=== PATIENT | male | born 1995 | race American Indian/Alaskan Native ===

== ENCOUNTER 2018-10-04 20:10 | Inpatient (IN) | payer MEDICAID ==
--- NOTE | 2018-10-04 20:16 | C.PDOC ---
History Of Present Illness 22 y/o male brought in by EMS after a seizure episode earlier today. Girlfriend states that she woke him up to get ready for work when the patient suddenly started to shake and had some difficulty breathing. As per girlfriend, he was foaming at the mouth and then collapsed to the ground which prompted her to call 911. Upon arrival, EMS states patient seemed to be confused and weak. He denies any fever, chills, nausea, or vomiting. Patient is AAOx3 but have no recollection of the event. Time Seen by Provider: 10/04/18 20:16 Chief Complaint (Nursing): Seizure History Per: Other (Girlfriend) History/Exam Limitations: no limitations Recent Seizure Activity Began: Hours Ago: Number Of Seizures: One Length Of Seizures (Duration): Unknown Quality Of Seizure: Generalized Precipitating Factor(s): Other (unknown) Post-ictal Period: Yes (Confused) Pain Scale Rating Of: 0 Recent travel outside of the [place]: No Additional History Per: EMS, Family Past Medical History Reviewed: Historical Data, Nursing Documentation, Vital Signs Family History: States: No Known Family Hx - Social History Hx Tobacco Use: (unknown) Hx Alcohol Use: Yes Hx Substance Use: (unknown) - Immunization History Hx Tetanus Toxoid Vaccination: (unknown) Hx Influenza Vaccination: (unknown) Hx Pneumococcal Vaccination: (unknown) Review Of Systems Constitutional: Negative for: Fever, Chills Eyes: Negative for: Redness ENT: Negative for: Throat Pain Cardiovascular: Negative for: Chest Pain Respiratory: Negative for: Shortness of Breath Gastrointestinal: Negative for: Nausea, Vomiting Musculoskeletal: Negative for: Back Pain Skin: Negative for: Rash Neurological: Positive for: Seizures Psych: Negative for: Anxiety Physical Exam - Physical Exam Appears: Non-toxic, No Acute Distress Skin: Warm, Dry Head: Normacephalic Eye(s): bilateral: Normal Inspection Oral Mucosa: Moist Neck: Trachea Midline, Supple Chest: Symmetrical Cardiovascular: Rhythm Regular Respiratory: No Rales, No Rhonchi, No Wheezing Gastrointestinal/Abdominal: Soft, No Tenderness, No Distention Back: Normal Inspection Extremity: Normal ROM Extremity: Bilateral: Atraumatic, Normal Color And Temperature, Normal ROM Pulses: Left Dorsalis Pedis: Normal, Right Dorsalis Pedis: Normal Neurological/Psych: Oriented x3, Normal Speech, Normal Cranial Nerves, Normal Motor, Normal Sensation Gait: Steady ED Course And Treatment - Laboratory Results Result Diagrams: 10/04/18 20:10 10/04/18 20:10 O2 Sat by Pulse Oximetry: 97 (RA) - CT Scan/US CT Head Other Rad Studies (CT/US): Read By Radiologist, Radiology Report Reviewed CT/US Interpretation: FINDINGS: BRAIN. No acute intraparenchymal hemorrhage. No mass lesion. No CT evidence for acute territorial infarct. No midline shift or extra-axial collections. VENTRICLES: No hydrocephalus. ORBITS: The orbits are unremarkable. SINUSES AND MASTOIDS: The paranasal sinuses and mastoid air cells are clear. BONES: No fracture. SOFT TISSUES: Unremarkable. IMPRESSION: No acute intracranial abnormality. Progress Note: Labs, CT head, chest x-ray, and urinalysis ordered. Disposition Discussed With DrNaila: Jesús Victor Comment: accepted the pt onhis service and took over the care at 10:57 PM Doctor Will See Patient In The: Hospital Counseled Patient/Family Regarding: Studies Performed, Diagnosis - Disposition Disposition: HOSPITALIZED Disposition Time: 20:16 Condition: FAIR Forms: enEvolv (Kosovan) - POA Present On Arrival: Poor Glycemic Control - Clinical Impression Clinical Impression: New onset seizure - Scribe Statement The provider has reviewed the documentation as recorded by the Irving Head Provider Attestation: All medical record entries made by the Irving were at my direction and personally dictated by me. I have reviewed the chart and agree that the record accurately reflects my personal performance of the history, physical exam, medical decision making, and the department course for this patient. I have also personally directed, reviewed, and agree with the discharge instructions and disposition. Decision To Admit - Pt Status Changed To: Hospital Disposition Of: Inpatient - Admit Certification Admit to Inpatient:: After my assessment, the patient will require hospitalization for at least two midnights. This is because of the severity of symptoms shown, intensity of services needed, and/or the medical risk in this patient being treated as an outpatient. - InPatient: Physician Admission Certification: I certify that this patient requires 2 or more midnights of care for the following reason:: After my assessment, the patient will require hospitalization for at least two midnights. This is because of the severity of symptoms shown, intensity of services needed, and/or the medical risk in this patient being treated as an outpatient. - . Bed Request Type: Regular Admitting Physician: Jesús Victor Patient Diagnosis: New onset seizure
[2018-10-04 20:39] LABS: BASO # 0.1 K/uL (0.0-0.2); BASO % 0.9 % (0.0-2.0); EOS # 0.2 K/uL (0.0-0.7); EOS % 2.3 % (0.0-4.0); HEMOGLOBIN 15.4 g/dL (12.0-18.0); LYMPH # 2.8 K/uL (1.0-4.3); LYMPH % 31.3 % (20.0-40.0); MEAN CORPUSCULAR HEMOGLOBIN 29.2 pg (27.0-31.0); MEAN CORPUSCULAR HGB CONC 33.9 g/dL (33.0-37.0); MEAN PLATELET VOLUME 9.8 fL (7.2-11.7); MONO # 0.5 K/uL (0.0-0.8); MONO % 5.6 % (0.0-10.0); NEUT # 5.4 K/uL (1.8-7.0); NEUT % 59.9 % (50.0-75.0); NRBC % 0.1 % (0.0-2.0); RBC 5.27 Mil/uL (4.40-5.90); RED CELL DISTRIBUTION WIDTH 13.1 % (11.5-14.5); WHITE BLOOD COUNT 8.9 K/uL (4.8-10.8)
[2018-10-04 20:51] LABS: ALB/GLOB RATIO 1.7 (1.0-2.1); ALBUMIN 4.6 g/dL (3.5-5.0); ALT/SGPT 39 U/L (21-72); AST/SGOT 27 U/L (17-59); BLOOD UREA NITROGEN 14 mg/dL (9-20); CALCIUM 8.9 mg/dl (8.6-10.4); GFR NON-AFRICAN AMERICAN > 60
[2018-10-04 20:58] LABS: VENOUS BLOOD GAS BASE EXCESS -3.9 mmol/L (0.0-2.0); VENOUS BLOOD GAS PCO2 43 mmHg (40-60); VENOUS BLOOD GAS PO2 39 mm/Hg (30-55); VENOUS BLOOD PH 7.32 (7.32-7.43)
[2018-10-04 21:28] LABS: URINE BILIRUBIN NEGATIVE (NEGATIVE); URINE BLOOD 2+ (NEGATIVE); URINE CLARITY Clear (Clear); URINE COLOR Yellow (YELLOW); URINE GLUCOSE (UA) NORMAL (Normal); URINE LEUKOCYTE ESTERASE NEG Leu/uL (Negative); URINE PROTEIN 1+ mg/dL (NEGATIVE); URINE UROBILINOGEN NORMAL mg/dL (0.2-1.0)
[2018-10-04 21:41] LABS: BARBITURATES, UR NEGATIVE (NEGATIVE); BENZODIAZEPINES, UR NEGATIVE (NEGATIVE); OPIATES, UR NEGATIVE (NEGATIVE); PHENCYCLIDINE, UR NEGATIVE (NEGATIVE)
--- NOTE | 2018-10-05 01:39 | PCM.RRT ---
Addendum entered and electronically signed by Cliff Villafana 10/05/18 01:51 EST: Neck was not rigid. Patient was afebrile. Case discussed with Dr. Shane Villafana, PGY1 Original Note: <Cliff Villafana - Last Filed: 10/05/18 01:54 EDT> FLUOROSCOPE OPERATOR Nurses Assessment - Situation Date: 10/05/18 Time FLUOROSCOPE OPERATOR was called: 01:08 FLUOROSCOPE OPERATOR Location:: Med/Oncology Room Number: 367A FLUOROSCOPE OPERATOR Called By: RN I.Reason for FLUOROSCOPE OPERATOR - A) Acute Change in Patient: (Select all that apply): Staff member or family is worried about patient, Acute change in mental status Subjective: Rapid was called at 0108 after girlfriend at bedside noted that patient was foaming at the mouth and had seizure like activity. AMANDA Godoy was called who activated rapid response. On arrival to the room, patient was not noted to have seizure-like activity, however was confused and lethargic. Initial vitals: BP 164/83 HR 112 Pulse ox 92% on RA Patient was placed on the monitor and was given 2L via NC Blood glucose levels were measured to be 108 Ativan 1mg given. On exam, patient was confused, unsure of the year, month, lethargic. Patient was noted to be slightly tachycardic with HR in 110s. No tongue lacerations noted No urinary incontinence noted. Repeat vitals O2 sat 94% on 2L NC BP 143/72 HR 99 Patient was made aware that he had a seizure again. He stated that he knew he was in the hospital. Final Vitals BP 134/70 HR 115 Patient was not noted to be febrile during this event. By the end of rapid response, patient was less confused and expressed understanding that he had a seizure. CBC, CMP, Mag, Phos, EEG ordered. Patient to be placed on seizure precautions and aspirations precautions. - Neurological Status (Select all that apply): Disoriented, Confused - Respiratory Oxygen Delivery Method: Nasal Cannula @L/min - Constitutional Appears: Confused - Head Head Exam: ATRAUMATIC, NORMOCEPHALIC - Respiratory Exam Respiratory Exam: absent: Rales, Rhonchi, Wheezes - Cardiovascular Exam Cardiovascular Exam: Tachycardia, +S1, +S2 - GI/Abdominal Exam GI & Abdominal Exam: Soft. absent: Tenderness - Neurological Exam Additional exam: Confused, lethargic Plan - Assessment of Findings&Treatment Plan CBC, CMP, Mag, Phos, EEG ordered. Patient to be placed on seizure precautions and aspirations precautions. <Yann Lynn P - Last Filed: 10/05/18 07:00> FLUOROSCOPE OPERATOR Nurses Assessment - Vital Signs Vital Signs: Rapid Response Vital Sign Blood Pressure 164/83 Pulse Rate 112 Temperature 98.0 F Oxygen Saturation 92 - Vital Signs at end of FLUOROSCOPE OPERATOR Vital Signs at end of FLUOROSCOPE OPERATOR: Rapid Response End Vital Sign Blood Pressure 134/70 Pulse Rate 99 Respiratory Rate 21 O2 Sat by Pulse Oximetry 95 Attending/Attestation - Attestation I have personally seen and examined this patient.: Yes I have fully participated in the care of the patient.: Yes I have reviewed all pertinent clinical information, including history, physical exam and plan: Yes Notes (Text): 10/05/18 07:00 see other note on the patient in the same morning.
--- NOTE | 2018-10-05 03:09 | CP.PCM.PCO ---
<Cliff Villafana - Last Filed: 10/05/18 05:52> Addendum Addendum: 10/05/18 03:04 House doc note: Patient's girlfriend notified nurse that patient has a rash on his chest and shoulder. She states she first noticed the rash while patient was in the ED. As per nursing staff, patient did not receive any medication while in the ED. While patient was up on the floors, patient's girlfriend noticed he was foaming at the mouth and seizing. Rapid was called at that time (please see PER DIEM CLERK note for further details). At that time, patient was given Ativan 1mg IV. Patient's primary was made aware who requested the Neurologist be made aware. Keppra 1000mg IVPB given as per Neurologist. About 2 hours later, patient's girlfriend notifying nurse that she noticed that his rash had spread to his shoulders. Patient himself stated that he did not notice the rash. He denies pruritic nature to the rash. He states he does not feel short of breath and does not feel like his throat is closing. He is awake and speaking clearly in full sentences. On exam, nonpruritic flat rash noted on chest extending to shoulders. Lungs are clear to auscultation. Benadryl not given since patient is comfortable at this time. Patient and girlfriend was made aware to notify staff if he develops shortness of breath or feels as though his throat is closing. Continue to monitor rash to see if rash is worsening. As per patient, he has no known allergies. 10/05/18 04:40 <Yann Lynn - Last Filed: 10/05/18 06:59> Attending/Attestation - Attestation I have personally seen and examined this patient.: Yes I have fully participated in the care of the patient.: Yes I have reviewed all pertinent clinical information: Yes Notes (Text): 10/05/18 06:56 Patient was admitted with new onset seizure, GF noticed patient shaking, foaming in the bed when PER DIEM CLERK was called, at the time of arrival patient was confused, sleepy, appeared post ictal, no tongue bite, the incontinence, plantars equivocal, moving all ext, no neck rigidity, no fever. Patient in next 10 mins came back to his baseline MS which is normal. He was transferred to tele.
[2018-10-05 07:33] LABS: BASO # 0.1 K/uL (0.0-0.2); BASO % 0.7 % (0.0-2.0); EOS % 0.4 % (0.0-4.0); HEMOGLOBIN 14.3 g/dL (12.0-18.0); LYMPH # 1.2 K/uL (1.0-4.3); LYMPH % 10.4 % (20.0-40.0); MEAN CELL VOLUME 84.8 fL (80.0-94.0); MEAN CORPUSCULAR HEMOGLOBIN 29.6 pg (27.0-31.0); MEAN CORPUSCULAR HGB CONC 34.9 g/dL (33.0-37.0); MEAN PLATELET VOLUME 9.4 fL (7.2-11.7); MONO # 0.8 K/uL (0.0-0.8); MONO % 7.3 % (0.0-10.0); NEUT # 9.2 K/uL (1.8-7.0); NEUT % 81.2 % (50.0-75.0); RBC 4.84 Mil/uL (4.40-5.90); RED CELL DISTRIBUTION WIDTH 13.3 % (11.5-14.5); WHITE BLOOD COUNT 11.4 K/uL (4.8-10.8)
[2018-10-05 08:03] LABS: ALB/GLOB RATIO 1.6 (1.0-2.1); ALBUMIN 4.1 g/dL (3.5-5.0); ALT/SGPT 47 U/L (21-72); AST/SGOT 53 U/L (17-59); BLOOD UREA NITROGEN 15 mg/dL (9-20); CALCIUM 8.5 mg/dl (8.6-10.4); GFR NON-AFRICAN AMERICAN > 60
[2018-10-05] MEDS: Pantoprazole 40 mg EC Tab PO SCH (09:07)
--- NOTE | 2018-10-05 09:25 | RAD ---
Date of service: 10/04/2018 HISTORY: Seizure COMPARISON: None available. FINDINGS: LUNGS: No active pulmonary disease. PLEURA: No significant pleural effusion identified, no pneumothorax apparent. CARDIOVASCULAR: No aortic atherosclerotic calcification present. Normal cardiac size. No pulmonary vascular congestion. OSSEOUS STRUCTURES: No significant abnormalities. VISUALIZED UPPER ABDOMEN: Normal. OTHER FINDINGS: None. IMPRESSION: No definite acute cardiopulmonary disease appreciated.
--- NOTE | 2018-10-05 12:56 | CP.PCM.HP ---
Past Patient History - Past Medical History & Family History Past Medical History?: Yes - Past Social History Smoking Status: Heavy Smoker > 10 Cigarettes Daily - CARDIAC Hx Cardiac Disorders: No - PULMONARY Hx Respiratory Disorders: No - NEUROLOGICAL Hx Neurological Disorder: Yes Hx Seizures: Yes (first seizure 10/04/18) - HEENT Hx HEENT Problems: No - RENAL Hx Chronic Kidney Disease: No - ENDOCRINE/METABOLIC Hx Endocrine Disorders: No - HEMATOLOGICAL/ONCOLOGICAL Hx Blood Disorders: No - INTEGUMENTARY Hx Dermatological Problems: No - MUSCULOSKELETAL/RHEUMATOLOGICAL Hx Falls: Yes (10/04/18 from seizure) - GASTROINTESTINAL Hx Gastrointestinal Disorders: No - GENITOURINARY/GYNECOLOGICAL Hx Genitourinary Disorders: No - PSYCHIATRIC Hx Substance Use: Yes (marijuana) - SURGICAL HISTORY Hx Surgeries: No - ANESTHESIA Hx Anesthesia: No Meds Allergies/Adverse Reactions: Allergies Allergy/AdvReac Type Severity Reaction Status Date / Time No Known Allergies Allergy Unverified 10/04/18 20:15 Physical Exam - Constitutional Appears: Well - Head Exam Head Exam: ATRAUMATIC, NORMAL INSPECTION, NORMOCEPHALIC - Eye Exam Eye Exam: EOMI, Normal appearance, PERRL Pupil Exam: NORMAL ACCOMODATION, PERRL - ENT Exam ENT Exam: Mucous Membranes Moist, Normal Exam - Neck Exam Neck exam: Positive for: Normal Inspection - Respiratory Exam Respiratory Exam: Decreased Breath Sounds - Cardiovascular Exam Cardiovascular Exam: REGULAR RHYTHM, +S1, +S2 - GI/Abdominal Exam GI & Abdominal Exam: Diminished Bowel Sounds, Soft - Rectal Exam Rectal Exam: Deferred Results - Vital Signs Recent Vital Signs: Last Vital Signs Temp 98.7 F 10/05/18 09:52 Pulse 76 10/05/18 07:00 Resp 20 10/05/18 07:00 BP 132/72 10/05/18 07:00 Pulse Ox 98 10/05/18 07:00 - Labs Result Diagrams: 10/05/18 07:28 10/05/18 07:28 Labs: Laboratory Results - last 24 hr 10/04/18 10/04/18 10/04/18 20:10 20:10 20:10 WBC 8.9 RBC 5.27 Hgb 15.4 Hct 45.3 MCV 86.0 D MCH 29.2 MCHC 33.9 RDW 13.1 Plt Count 231 MPV 9.8 Neut % (Auto) 59.9 Lymph % (Auto) 31.3 [place] % (Auto) 5.6 Eos % (Auto) 2.3 Baso % (Auto) 0.9 Neut # (Auto) 5.4 Lymph # (Auto) 2.8 [place] # (Auto) 0.5 Eos # (Auto) 0.2 Baso # (Auto) 0.1 pO2 VBG pH VBG pCO2 VBG HCO3 VBG Total CO2 VBG O2 Sat (Calc) VBG Base Excess VBG Potassium Glucose Lactate Sodium 139 Potassium 3.8 Chloride 103 Carbon Dioxide 17 L Anion Gap 22 H BUN 14 Creatinine 1.3 Est GFR ( Amer) > 60 Est GFR (Non-Af Amer) > 60 POC Glucose (mg/dL) Random Glucose 124 H Calcium 8.9 Phosphorus Magnesium Total Bilirubin 0.7 AST 27 ALT 39 Alkaline Phosphatase 67 Total Creatine Kinase 379 H Total Protein 7.2 Albumin 4.6 Globulin 2.7 Albumin/Globulin Ratio 1.7 Procalcitonin < 0.05 L Venous Blood Potassium Urine Color Urine Clarity Urine pH Ur Specific [place] Urine Protein Urine Glucose (UA) Urine Ketones Urine Blood Urine Nitrate Urine Bilirubin Urine Urobilinogen Ur Leukocyte Esterase Urine WBC (Auto) Urine RBC (Auto) Hyaline Casts Urine Opiates Screen Urine Methadone Screen Ur Barbiturates Screen Ur Phencyclidine Scrn Ur Amphetamines Screen U Benzodiazepines Scrn U Oth Cocaine Metabols U Cannabinoids Screen Alcohol, Quantitative 10/04/18 10/04/18 10/04/18 20:14 20:55 21:00 WBC RBC Hgb Hct MCV MCH MCHC RDW Plt Count MPV Neut % (Auto) Lymph % (Auto) [place] % (Auto) Eos % (Auto) Baso % (Auto) Neut # (Auto) Lymph # (Auto) [place] # (Auto) Eos # (Auto) Baso # (Auto) pO2 39 VBG pH 7.32 VBG pCO2 43 VBG HCO3 21.1 VBG Total CO2 23.5 VBG O2 Sat (Calc) 77.3 H VBG Base Excess -3.9 L VBG Potassium 3.6 Glucose 99 Lactate 3.2 H Sodium 137.0 Potassium Chloride 105.0 Carbon Dioxide Anion Gap BUN Creatinine Est GFR ( Amer) Est GFR (Non-Af Amer) POC Glucose (mg/dL) 122 H Random Glucose Calcium Phosphorus Magnesium Total Bilirubin AST ALT Alkaline Phosphatase Total Creatine Kinase Total Protein Albumin Globulin Albumin/Globulin Ratio Procalcitonin Venous Blood Potassium 3.6 Urine Color Yellow Urine Clarity Clear Urine pH 5.0 Ur Specific [place] 1.017 Urine Protein 1+ H Urine Glucose (UA) Normal Urine Ketones Negative Urine Blood 2+ H Urine Nitrate Negative Urine Bilirubin Negative Urine Urobilinogen Normal Ur Leukocyte Esterase Neg Urine WBC (Auto) 1 Urine RBC (Auto) 12 H Hyaline Casts 3-5 H Urine Opiates Screen Urine Methadone Screen Ur Barbiturates Screen Ur Phencyclidine Scrn Ur Amphetamines Screen U Benzodiazepines Scrn U Oth Cocaine Metabols U Cannabinoids Screen Alcohol, Quantitative 10/04/18 10/04/18 10/05/18 21:00 22:30 01:09 EST WBC RBC Hgb Hct MCV MCH MCHC RDW Plt Count MPV Neut % (Auto) Lymph % (Auto) [place] % (Auto) Eos % (Auto) Baso % (Auto) Neut # (Auto) Lymph # (Auto) [place] # (Auto) Eos # (Auto) Baso # (Auto) pO2 VBG pH VBG pCO2 VBG HCO3 VBG Total CO2 VBG O2 Sat (Calc) VBG Base Excess VBG Potassium Glucose Lactate Sodium Potassium Chloride Carbon Dioxide Anion Gap BUN Creatinine Est GFR ( Amer) Est GFR (Non-Af Amer) POC Glucose (mg/dL) 108 Random Glucose Calcium Phosphorus Magnesium Total Bilirubin AST ALT Alkaline Phosphatase Total Creatine Kinase Total Protein Albumin Globulin Albumin/Globulin Ratio Procalcitonin Venous Blood Potassium Urine Color Urine Clarity Urine pH Ur Specific [place] Urine Protein Urine Glucose (UA) Urine Ketones Urine Blood Urine Nitrate Urine Bilirubin Urine Urobilinogen Ur Leukocyte Esterase Urine WBC (Auto) Urine RBC (Auto) Hyaline Casts Urine Opiates Screen Negative Urine Methadone Screen Negative Ur Barbiturates Screen Negative Ur Phencyclidine Scrn Negative Ur Amphetamines Screen Negative U Benzodiazepines Scrn Negative U Oth Cocaine Metabols Negative U Cannabinoids Screen Positive H Alcohol, Quantitative < 10 10/05/18 10/05/18 07:28 07:28 WBC 11.4 H RBC 4.84 Hgb 14.3 Hct 41.0 MCV 84.8 MCH 29.6 MCHC 34.9 RDW 13.3 Plt Count 193 MPV 9.4 Neut % (Auto) 81.2 H Lymph % (Auto) 10.4 L [place] % (Auto) 7.3 Eos % (Auto) 0.4 Baso % (Auto) 0.7 Neut # (Auto) 9.2 H Lymph # (Auto) 1.2 [place] # (Auto) 0.8 Eos # (Auto) 0.0 Baso # (Auto) 0.1 pO2 VBG pH VBG pCO2 VBG HCO3 VBG Total CO2 VBG O2 Sat (Calc) VBG Base Excess VBG Potassium Glucose Lactate Sodium 139 Potassium 3.8 Chloride 106 Carbon Dioxide 23 Anion Gap 13 BUN 15 Creatinine 1.2 Est GFR ( Amer) > 60 Est GFR (Non-Af Amer) > 60 POC Glucose (mg/dL) Random Glucose 103 Calcium 8.5 L Phosphorus 3.8 Magnesium 2.5 H Total Bilirubin 1.0 AST 53 ALT 47 Alkaline Phosphatase 64 Total Creatine Kinase Total Protein 6.8 Albumin 4.1 Globulin 2.7 Albumin/Globulin Ratio 1.6 Procalcitonin Venous Blood Potassium Urine Color Urine Clarity Urine pH Ur Specific [place] Urine Protein Urine Glucose (UA) Urine Ketones Urine Blood Urine Nitrate Urine Bilirubin Urine Urobilinogen Ur Leukocyte Esterase Urine WBC (Auto) Urine RBC (Auto) Hyaline Casts Urine Opiates Screen Urine Methadone Screen Ur Barbiturates Screen Ur Phencyclidine Scrn Ur Amphetamines Screen U Benzodiazepines Scrn U Oth Cocaine Metabols U Cannabinoids Screen Alcohol, Quantitative
--- NOTE | 2018-10-05 15:30 | CT ---
Date of service: 10/04/2018 PROCEDURE: CT HEAD WITHOUT CONTRAST. HISTORY: seizure COMPARISON: None available. TECHNIQUE: Axial computed tomography images were obtained through the head/brain without intravenous contrast. Radiation dose: Total exam DLP = 1201.45 mGy-cm. This CT exam was performed using one or more of the following dose reduction techniques: Automated exposure control, adjustment of the mA and/or kV according to patient size, and/or use of iterative reconstruction technique. FINDINGS: HEMORRHAGE: No intracranial hemorrhage. BRAIN: Normal wilson-white matter differentiation and density are appreciated throughout the cerebrum and cerebellum with the brainstem appearing unremarkable as well. There is no mass effect. There is no suspicious extra-axial fluid collection and the midline brain anatomy appears diffusely unremarkable. VENTRICLES: Unremarkable. No hydrocephalus. CALVARIUM: No destructive bony lesion or displaced fracture identified including through the skullbase. PARANASAL SINUSES: Left sphenoid sinus disease identified. MASTOID AIR CELLS: Unremarkable as visualized. No inflammatory changes. OTHER FINDINGS: None. IMPRESSION: Unremarkable noncontrast head CT with exception of left sinus disease. Concordant preliminary report from [facility], 10/04/2018.
--- NOTE | 2018-10-05 16:33 | CP.PCM.CON ---
History of Present Illness - History of Present Illness History of Present Illness: Neurology Consultation Note: Mr. Epps is a 22-year-old man with no significant past medical history, who was witnessed in the morning to have generalized shaking, foaming at the mouth and collapse. EMS was called and noted a post-ictal state. He was brought to the ED and a non-contrast CT scan of the head was done and was normal. Labs showed a slight elevation in WBC and urine toxicology was positive for THC. Last night, he had another seizure in his room that was again witnessed by his girlfriend and house physician confirmed post-ictal state with subsequent return to baseline. The patient also admitted to having episodes of jaw locking recently where he is unable to open his mouth due to contractions. These have been happening over the last two weeks. Review of Systems - Constitutional Constitutional: As Per HPI - EENT Eyes: absent: As Per HPI, Blind Spots, Blurred Vision, Change in Vision, Decreased Night Vision, Diplopia, Discharge, Dry Eye, Exophthalmos, Floaters, Irritation, Itchy Eyes, Loss of Peripheral Vision, Pain, Photophobia, Requires Corrective Lenses, Sees Flashes, Spots in Vision, Tunnel Vision, Other Visual Disturbances, Loss of Vision, Other Ears: absent: As Per HPI, Decreased Hearing, Ear Discharge, Ear Pain, Tinnitus, Abnormal Hearing, Disequilibrium, Dizziness, Other Nose/Mouth/Throat: absent: As Per HPI, Epistaxis, Nasal Congestion, Nasal Discharge, Nasal Obstruction, Nasal Trauma, Nose Pain, Post Nasal Drip, Sinus Pain, Sinus Pressure, Bleeding Gums, Change in Voice, Dental Pain, Dry Mouth, Dysphagia, Halitosis, Hoarsness, Lip Swelling, Mouth Lesions, Mouth Pain, Odynophagia, Sore Throat, Throat Swelling, Tongue Swelling, Facial Pain, Neck Pain, Neck Mass, Other - Cardiovascular Cardiovascular: absent: As Per HPI, Acrocyanosis, Chest Pain, Chest Pain at Rest, Chest Pain with Activity, Claudication, Diaphoresis, Dyspnea, Dyspnea on Exertion, Edema, Irregular Heart Rhythm, Pain Radiating to Arm/Neck/Jaw, Leg Edema, Leg Ulcers, Lightheadedness, Orthopnea, Palpitations, Paroxysmal Nocturnal Dyspnea, Pedal Edema, Radiating Pain, Rapid Heart Rate, Slow Heart Rate, Syncope, Other - Respiratory Respiratory: absent: As Per HPI, Cough, Dyspnea, Hemoptysis, Dyspnea on Exertion, Wheezing, Snoring, Stridor, Pain on Inspiration, Chest Congestion, Excessive Mucous Production, Change in Mucous Color, Pain with Coughing, Other - Gastrointestinal Gastrointestinal: absent: As Per HPI, Abdominal Pain, Belching, Bloating, Change in Bowel Habits, Change in Stool Character, Coffee Ground Emesis, Constipation, Cramping, Diarrhea, Dyspepsia, Dysphagia, Early Satiety, Excessive Flatus, Fecal Incontinence, Heartburn, Hematemesis, Hematochezia, Loose Stools, Melena, Nausea, Odynophagia, Temesmus, Vomiting, Other - Genitourinary Genitourinary: absent: As Per HPI, Change in Urinary Stream, Difficulty Urinating, Dysuria, Flank Pain, Hematuria, Pyuria, Nocturia, Urinary I ncontinence, Urinary Frequency, Urinary Hesitance, Urinary Urgency, Voiding Freq/Small Amts, Freq UTI, Hx Renal/Bladder Calculi, Hx /Renal Surgery, Bladder Distension, Other - Musculoskeletal Musculoskeletal: absent: As Per HPI, Abnormal Gait, Arthralgias, Atrophy, Back Pain, Deformity, Joint Swelling, Limited Range of Motion, Loss of Height, Muscle Cramps, Muscle Weakness, Myalgias, Neck Pain, Numbness, Radiating Pain into Limb, Stiffness, Tingling, Other - Integumentary Integumentary: absent: As Per HPI, Acne, Alopecia, Bleeding Lesions, Change in Hair, Change in Nails, Change in Pigmentation, Changing Lesions, Dry Skin, Erythema, Furuncle, Hirsutism, Lesions, New Lesions, Non-Healing Lesions, Photosensitivity, Pruritus, Rash, Skin Pain, Skin Ulcer, Sores, Striae, Swelling, Unusual Bruising, Wounds, Jaundice, Other - Neurological Neurological: As Per HPI - Psychiatric Psychiatric: absent: As Per HPI, Abnormal Sleep Pattern, Anhedonia, Anxiety, Auditory Hallucinations, Behavioral Changes, Change in Appetite, Change in Libido, Confusion, Depression, Difficulty Concentrating, Hallucinations, Homicidal Ideation, Hopelessness, Irritability, Memory Loss, Mood Swings, Panic Attacks, Paranoia, Suicidal Ideation, Visual Hallucinations, Tactile Hallucinations, Other - Endocrine Endocrine: absent: As Per HPI, Change in Body Appearance, Change in Libido, Cold Intolorance, Deepening of Voice, Excessive Sweating, Fatigue, Flushing, Heat Intolorance, Increase in Ring/Shoe/Hat Size, Palpitations, Polydipsia, Polyphagia, Polyuria, Other - Hematologic/Lymphatic Hematologic: absent: As Per HPI, Easy Bleeding, Easy Bruising, Lymphadenopathy, Other Past Patient History - Past Medical History & Family History Past Medical History?: Yes - Past Social History Smoking Status: Heavy Smoker > 10 Cigarettes Daily - CARDIAC Hx Cardiac Disorders: No - PULMONARY Hx Respiratory Disorders: No - NEUROLOGICAL Hx Neurological Disorder: Yes Hx Seizures: Yes (first seizure 10/04/18) - HEENT Hx HEENT Problems: No - RENAL Hx Chronic Kidney Disease: No - ENDOCRINE/METABOLIC Hx Endocrine Disorders: No - HEMATOLOGICAL/ONCOLOGICAL Hx Blood Disorders: No - INTEGUMENTARY Hx Dermatological Problems: No - MUSCULOSKELETAL/RHEUMATOLOGICAL Hx Falls: Yes (10/04/18 from seizure) - GASTROINTESTINAL Hx Gastrointestinal Disorders: No - GENITOURINARY/GYNECOLOGICAL Hx Genitourinary Disorders: No - PSYCHIATRIC Hx Substance Use: Yes (marijuana) - SURGICAL HISTORY Hx Surgeries: No - ANESTHESIA Hx Anesthesia: No Meds Allergies/Adverse Reactions: Allergies Allergy/AdvReac Type Severity Reaction Status Date / Time No Known Allergies Allergy Unverified 10/04/18 20:15 - Medications Medications: Current Medications Acetaminophen (Tylenol 325mg Tab) 650 mg PO Q6 PRN PRN Reason: Pain, moderate (4-7) Influenza Virus Vaccine (Fluzone Quad [id number]) 60 mcg IM .ONCE ONE Stop: 10/07/18 10:01 Levetiracetam (Keppra) 500 mg PO BID [facility] Last Admin: 10/05/18 09:07 Dose: 500 mg Lorazepam (Ativan) 0.5 mg IVP Q12 PRN PRN Reason: Seizure activity Pantoprazole Sodium (Protonix Ec Tab) 40 mg PO DAILY [facility] Last Admin: 10/05/18 09:07 Dose: 40 mg Pneumococcal Polyvalent Vaccine (Pneumovax 23 Vaccine) 0.5 ml IM .ONCE ONE Stop: 10/07/18 10:01 Physical Exam - Constitutional Appears: Well - Head Exam Head Exam: ATRAUMATIC, NORMAL INSPECTION, NORMOCEPHALIC - Eye Exam Eye Exam: EOMI, Normal appearance, PERRL - ENT Exam ENT Exam: Mucous Membranes Moist, Normal Exam - Neck Exam Neck exam: Positive for: Normal Inspection - Respiratory Exam Respiratory Exam: Clear to Auscultation Bilateral, NORMAL BREATHING PATTERN - Cardiovascular Exam Cardiovascular Exam: REGULAR RHYTHM, +S1, +S2 - GI/Abdominal Exam GI & Abdominal Exam: Normal Bowel Sounds, Soft. absent: Tenderness - Rectal Exam Rectal Exam: Deferred - Back Exam Back exam: NORMAL INSPECTION - Neurological Exam Neurological exam: Alert, CN II-XII Intact, Normal Gait, Oriented x3, Reflexes Normal - Psychiatric Exam Psychiatric exam: Normal Affect, Normal Mood - Skin Skin Exam: Dry, Intact, Normal Color, Warm Results - Vital Signs Recent Vital Signs: Last Vital Signs Temp 98.6 F 10/05/18 15:00 Pulse 69 10/05/18 15:56 Resp 20 10/05/18 15:00 BP 121/72 10/05/18 15:00 Pulse Ox 97 10/05/18 15:00 - Labs Result Diagrams: 10/05/18 07:28 10/05/18 07:28 Labs: Laboratory Results - last 24 hr 10/04/18 10/04/18 10/04/18 20:10 20:10 20:10 WBC 8.9 RBC 5.27 Hgb 15.4 Hct 45.3 MCV 86.0 D MCH 29.2 MCHC 33.9 RDW 13.1 Plt Count 231 MPV 9.8 Neut % (Auto) 59.9 Lymph % (Auto) 31.3 [place] % (Auto) 5.6 Eos % (Auto) 2.3 Baso % (Auto) 0.9 Neut # (Auto) 5.4 Lymph # (Auto) 2.8 [place] # (Auto) 0.5 Eos # (Auto) 0.2 Baso # (Auto) 0.1 pO2 VBG pH VBG pCO2 VBG HCO3 VBG Total CO2 VBG O2 Sat (Calc) VBG Base Excess VBG Potassium Glucose Lactate Sodium 139 Potassium 3.8 Chloride 103 Carbon Dioxide 17 L Anion Gap 22 H BUN 14 Creatinine 1.3 Est GFR ( Amer) > 60 Est GFR (Non-Af Amer) > 60 POC Glucose (mg/dL) Random Glucose 124 H Calcium 8.9 Phosphorus Magnesium Total Bilirubin 0.7 AST 27 ALT 39 Alkaline Phosphatase 67 Total Creatine Kinase 379 H Total Protein 7.2 Albumin 4.6 Globulin 2.7 Albumin/Globulin Ratio 1.7 Procalcitonin < 0.05 L Venous Blood Potassium Urine Color Urine Clarity Urine pH Ur Specific [place] Urine Protein Urine Glucose (UA) Urine Ketones Urine Blood Urine Nitrate Urine Bilirubin Urine Urobilinogen Ur Leukocyte Esterase Urine WBC (Auto) Urine RBC (Auto) Hyaline Casts Urine Opiates Screen Urine Methadone Screen Ur Barbiturates Screen Ur Phencyclidine Scrn Ur Amphetamines Screen U Benzodiazepines Scrn U Oth Cocaine Metabols U Cannabinoids Screen Alcohol, Quantitative 10/04/18 10/04/18 10/04/18 20:14 20:55 21:00 WBC RBC Hgb Hct MCV MCH MCHC RDW Plt Count MPV Neut % (Auto) Lymph % (Auto) [place] % (Auto) Eos % (Auto) Baso % (Auto) Neut # (Auto) Lymph # (Auto) [place] # (Auto) Eos # (Auto) Baso # (Auto) pO2 39 VBG pH 7.32 VBG pCO2 43 VBG HCO3 21.1 VBG Total CO2 23.5 VBG O2 Sat (Calc) 77.3 H VBG Base Excess -3.9 L VBG Potassium 3.6 Glucose 99 Lactate 3.2 H Sodium 137.0 Potassium Chloride 105.0 Carbon Dioxide Anion Gap BUN Creatinine Est GFR ( Amer) Est GFR (Non-Af Amer) POC Glucose (mg/dL) 122 H Random Glucose Calcium Phosphorus Magnesium Total Bilirubin AST ALT Alkaline Phosphatase Total Creatine Kinase Total Protein Albumin Globulin Albumin/Globulin Ratio Procalcitonin Venous Blood Potassium 3.6 Urine Color Yellow Urine Clarity Clear Urine pH 5.0 Ur Specific [place] 1.017 Urine Protein 1+ H Urine Glucose (UA) Normal Urine Ketones Negative Urine Blood 2+ H Urine Nitrate Negative Urine Bilirubin Negative Urine Urobilinogen Normal Ur Leukocyte Esterase Neg Urine WBC (Auto) 1 Urine RBC (Auto) 12 H Hyaline Casts 3-5 H Urine Opiates Screen Urine Methadone Screen Ur Barbiturates Screen Ur Phencyclidine Scrn Ur Amphetamines Screen U Benzodiazepines Scrn U Oth Cocaine Metabols U Cannabinoids Screen Alcohol, Quantitative 10/04/18 10/04/18 10/05/18 21:00 22:30 01:09 EST WBC RBC Hgb Hct MCV MCH MCHC RDW Plt Count MPV Neut % (Auto) Lymph % (Auto) [place] % (Auto) Eos % (Auto) Baso % (Auto) Neut # (Auto) Lymph # (Auto) [place] # (Auto) Eos # (Auto) Baso # (Auto) pO2 VBG pH VBG pCO2 VBG HCO3 VBG Total CO2 VBG O2 Sat (Calc) VBG Base Excess VBG Potassium Glucose Lactate Sodium Potassium Chloride Carbon Dioxide Anion Gap BUN Creatinine Est GFR ( Amer) Est GFR (Non-Af Amer) POC Glucose (mg/dL) 108 Random Glucose Calcium Phosphorus Magnesium Total Bilirubin AST ALT Alkaline Phosphatase Total Creatine Kinase Total Protein Albumin Globulin Albumin/Globulin Ratio Procalcitonin Venous Blood Potassium Urine Color Urine Clarity Urine pH Ur Specific [place] Urine Protein Urine Glucose (UA) Urine Ketones Urine Blood Urine Nitrate Urine Bilirubin Urine Urobilinogen Ur Leukocyte Esterase Urine WBC (Auto) Urine RBC (Auto) Hyaline Casts Urine Opiates Screen Negative Urine Methadone Screen Negative Ur Barbiturates Screen Negative Ur Phencyclidine Scrn Negative Ur Amphetamines Screen Negative U Benzodiazepines Scrn Negative U Oth Cocaine Metabols Negative U Cannabinoids Screen Positive H Alcohol, Quantitative < 10 10/05/18 10/05/18 07:28 07:28 WBC 11.4 H RBC 4.84 Hgb 14.3 Hct 41.0 MCV 84.8 MCH 29.6 MCHC 34.9 RDW 13.3 Plt Count 193 MPV 9.4 Neut % (Auto) 81.2 H Lymph % (Auto) 10.4 L [place] % (Auto) 7.3 Eos % (Auto) 0.4 Baso % (Auto) 0.7 Neut # (Auto) 9.2 H Lymph # (Auto) 1.2 [place] # (Auto) 0.8 Eos # (Auto) 0.0 Baso # (Auto) 0.1 pO2 VBG pH VBG pCO2 VBG HCO3 VBG Total CO2 VBG O2 Sat (Calc) VBG Base Excess VBG Potassium Glucose Lactate Sodium 139 Potassium 3.8 Chloride 106 Carbon Dioxide 23 Anion Gap 13 BUN 15 Creatinine 1.2 Est GFR ( Amer) > 60 Est GFR (Non-Af Amer) > 60 POC Glucose (mg/dL) Random Glucose 103 Calcium 8.5 L Phosphorus 3.8 Magnesium 2.5 H Total Bilirubin 1.0 AST 53 ALT 47 Alkaline Phosphatase 64 Total Creatine Kinase Total Protein 6.8 Albumin 4.1 Globulin 2.7 Albumin/Globulin Ratio 1.6 Procalcitonin Venous Blood Potassium Urine Color Urine Clarity Urine pH Ur Specific [place] Urine Protein Urine Glucose (UA) Urine Ketones Urine Blood Urine Nitrate Urine Bilirubin Urine Urobilinogen Ur Leukocyte Esterase Urine WBC (Auto) Urine RBC (Auto) Hyaline Casts Urine Opiates Screen Urine Methadone Screen Ur Barbiturates Screen Ur Phencyclidine Scrn Ur Amphetamines Screen U Benzodiazepines Scrn U Oth Cocaine Metabols U Cannabinoids Screen Alcohol, Quantitative Assessment & Plan (1) New onset seizure Assessment and Plan: There were two events within a 24 hour period. There is also a history of of tonic activity of the jaw, which could be other seizure-like events. The patient should be started on an AED. I will start him on Vimpat 200 mg IV now and continue 100 mg PO BID. Will obtain MRI of the brain with and without contrast and an EEG for one hour and follow up. Thank you for this consultation. Status: Acute
[2018-10-05] MEDS ORDERED: Lacosamide 200mg/20ml Inj IV ONE (16:46)
[2018-10-05] MEDS ORDERED: Lacosamide 200mg/20ml 200 MG in Sodium Chloride 0.9% 100 ML IV ONE (18:00)
[2018-10-05] MEDS: Sodium Chloride 0.9% 1,000 ML IV SCH (19:03)
[2018-10-06] MEDS: Sodium Chloride 0.9% 1,000 ML IV SCH ×2 (04:56→17:14)
[2018-10-06] MEDS: Lacosamide 100 MG Tab PO SCH ×2 (09:28→17:10)
[2018-10-06] MEDS: Pantoprazole 40 mg EC Tab PO SCH (09:33)
--- NOTE | 2018-10-06 10:43 | CP.PCM.PN ---
Subjective - Date & Time of Evaluation Date of Evaluation: 10/06/18 Time of Evaluation: 09:00 - Subjective Subjective: Mr. Epps is a 22 year old male with no significant past medical history admitted for evaluation and treatment of seizure activity witnessed by his girlfriend. Girlfriend states that the first seizure occurred upon waking up. She states he was gasping for air and foaming at the mouth. Patient had another seizure while in the hospital with associated biting of the tongue and urinary incontinence. Today patient reports that he feels "good". He does complain of generalized body soreness and tongue tenderness from biting it. He denies any fever, headache, SOB, chest pain, abdominal pain, changes in bowel habits, or urinary symptoms. Objective - Vital Signs/Intake and Output Vital Signs (last 24 hours): Temp Pulse Resp BP Pulse Ox 98 F 75 20 134/85 98 10/06/18 08:21 10/06/18 08:21 10/06/18 08:21 10/06/18 08:21 10/06/18 08:21 Intake and Output: 10/06/18 10/06/18 06:59 18:59 Intake Total 2200 Output Total 1100 Balance 1100 - Medications Medications: Current Medications Acetaminophen (Tylenol 325mg Tab) 650 mg PO Q6 PRN PRN Reason: Pain, moderate (4-7) Sodium Chloride (Sodium Chloride 0.9%) 1,000 mls @ 100 mls/hr IV .Q10H [facility] Last Admin: 10/06/18 04:56 Dose: 100 mls/hr Influenza Virus Vaccine (Fluzone Quad [id number]) 60 mcg IM .ONCE ONE Stop: 10/07/18 10:01 Lacosamide (Vimpat) 100 mg PO BID [facility] Last Admin: 10/06/18 09:28 Dose: 100 mg Lorazepam (Ativan) 0.5 mg IVP Q12 PRN PRN Reason: Seizure activity Pantoprazole Sodium (Protonix Ec Tab) 40 mg PO DAILY [facility] Last Admin: 10/06/18 09:33 Dose: 40 mg Pneumococcal Polyvalent Vaccine (Pneumovax 23 Vaccine) 0.5 ml IM .ONCE ONE Stop: 10/07/18 10:01 Tramadol HCl (Ultram) 50 mg PO Q8H PRN PRN Reason: Pain, severe (8-10) Last Admin: 10/05/18 19:01 Dose: 50 mg - Labs Labs: 10/05/18 07:28 10/05/18 07:28 - Constitutional Appears: Well, Non-toxic, No Acute Distress - Head Exam Head Exam: ATRAUMATIC, NORMAL INSPECTION, NORMOCEPHALIC - Eye Exam Eye Exam: EOMI, Normal appearance, PERRL. absent: Scleral icterus - ENT Exam ENT Exam: Mucous Membranes Moist - Respiratory Exam Respiratory Exam: Clear to Ausculation Bilateral, NORMAL BREATHING PATTERN. absent: Accessory Muscle Use - Cardiovascular Exam Cardiovascular Exam: RRR, +S1, +S2 - GI/Abdominal Exam GI & Abdominal Exam: Soft, Normal Bowel Sounds. absent: Tenderness - Extremities Exam Extremities Exam: Full ROM, Normal Capillary Refill, Normal Inspection. absent: Pedal Edema - Neurological Exam Neurological Exam: Alert, Awake, Oriented x3. absent: Motor Sensory Deficit Neuro motor strength exam: Left Upper Extremity: 5, Right Upper Extremity: 5, Left Lower Extremity: 5, Right Lower Extremity: 5 - Psychiatric Exam Psychiatric exam: Normal Affect, Normal Mood - Skin Skin Exam: Dry, Intact, Normal Color, Warm Assessment and Plan - Assessment and Plan (Free Text) Assessment: 22 year old male with no significant past medical history admitted for evaluation and treatment of seizures. Plan: Seizure (New Onset) Neurology Consult (Dr. Robbins), Recs Appreciated Seizure/Aspiration Precautions CXR (Admission): No definite acute cardiopulmonary disease Head CT (Admission): NEGATIVE, except left sinus disease UDS (Admission): (+)THC EEG (10/06/18): Abnormal awake and drowsy EEG. THere are frequent left centro parietal sharps that indicate complex partial Epilepsy Brain MRI w/wo contrast: No acute intracranial abnormality. Essentially normal noncontrast and contrast-enhanced MRI of the brain. Acute and/or chronic pansinusitis, worse in the right maxillary, right frontal and sphenoid sinuses. MEDS: Tylenol PRN Lacosamide (Vimpat) 100mg BID Keppra 500 BID, started today. Ativan 0.5 IVP Q12H PRN NS @ 100mls/hr Ultram 50mg PO Q8H PRN (Discontinued due to lowering seizure threshold) Proph Protonix SCD's Heart Healthy Diet. Dispo: Will follow up with Neuro regarding when patient can be DC'd and on what medications. Discussed with Dr. Sunny Markham, PGY-2
[2018-10-06] MEDS ORDERED: Gadodiamide 287 mg/ml 20 ml IV ONE (12:12)
--- NOTE | 2018-10-06 14:13 | MRI ---
Date of service: 10/06/2018 PROCEDURE: MRI BRAIN WITH AND WITHOUT CONTRAST HISTORY: seizure COMPARISON: Noncontrast head CT from 10/04/2018. TECHNIQUE: Multiplanar, multisequence MR images of the brain were obtained with and without intravenous contrast enhancement. 20 mL Omniscan was injected intravenously. FINDINGS: HEMORRHAGE: None DWI: No evidence of an acute or early subacute infarction. BRAIN PARENCHYMA: There are mild chronic microangiopathic changes. There is no mass, mass effect or abnormal extra-axial fluid collection. There is no territorial infarction. The midline sagittal structures are normal. There retro cerebellar arachnoid granulations. The hippocampi are symmetric and demonstrate normal signal intensity without evidence for mesial temporal sclerosis. ENHANCEMENT: No abnormal intracranial enhancement. VENTRICLES: The ventricles are normal in size, shape and configuration. CRANIUM: There is normal bone marrow signal pattern. ORBITS: Grossly unremarkable. PARANASAL SINUSES/MASTOIDS: There is abnormal soft tissue completely opacifying the right frontal, right maxillary sinuses and sphenoid with scattered mucosal thickening in the ethmoid air cells. There is corresponding restricted diffusion in the right maxillary and right frontal sinuses consistent with thick or inspissated secretions. VASCULAR SYSTEM: There are normal signal voids in the larger intracranial arteries. OTHER FINDINGS: None . IMPRESSION: No acute intracranial abnormality. Essentially normal noncontrast and contrast-enhanced MRI of the brain. Acute and/or chronic pansinusitis, worse in the right maxillary, right frontal and sphenoid sinuses.
--- NOTE | 2018-10-06 14:38 | CP.PCM.PN ---
Subjective - Date & Time of Evaluation Date of Evaluation: 10/06/18 Time of Evaluation: 09:00 - Subjective Subjective: clinically same Objective - Vital Signs/Intake and Output Vital Signs (last 24 hours): Temp Pulse Resp BP Pulse Ox 98 F 75 20 134/85 98 10/06/18 08:21 10/06/18 08:21 10/06/18 08:21 10/06/18 08:21 10/06/18 08:21 Intake and Output: 10/06/18 10/06/18 06:59 18:59 Intake Total 2200 Output Total 1100 Balance 1100 - Medications Medications: Current Medications Acetaminophen (Tylenol 325mg Tab) 650 mg PO Q6 PRN PRN Reason: Pain, moderate (4-7) Sodium Chloride (Sodium Chloride 0.9%) 1,000 mls @ 100 mls/hr IV .Q10H [facility] Last Admin: 10/06/18 04:56 Dose: 100 mls/hr Influenza Virus Vaccine (Fluzone Quad [id number]) 60 mcg IM .ONCE ONE Stop: 10/07/18 10:01 Lacosamide (Vimpat) 100 mg PO BID [facility] Last Admin: 10/06/18 09:28 Dose: 100 mg Lorazepam (Ativan) 0.5 mg IVP Q12 PRN PRN Reason: Seizure activity Pantoprazole Sodium (Protonix Ec Tab) 40 mg PO DAILY [facility] Last Admin: 10/06/18 09:33 Dose: 40 mg Pneumococcal Polyvalent Vaccine (Pneumovax 23 Vaccine) 0.5 ml IM .ONCE ONE Stop: 10/07/18 10:01 Tramadol HCl (Ultram) 50 mg PO Q8H PRN PRN Reason: Pain, severe (8-10) Last Admin: 10/05/18 19:01 Dose: 50 mg - Labs Labs: 10/05/18 07:28 10/05/18 07:28
[2018-10-06] MEDS ORDERED: Benzocaine/Menthol (Cepacol) Lozenge MT PRN (15:25)
[2018-10-07] MEDS: Sodium Chloride 0.9% 1,000 ML IV SCH ×5 (01:00→20:27)
[2018-10-07 07:32] VITALS: RESP 20
[2018-10-07 07:50] LABS: BASO # 0.1 K/uL (0.0-0.2); BASO % 0.9 % (0.0-2.0); EOS # 0.3 K/uL (0.0-0.7); EOS % 4.3 % (0.0-4.0); HEMOGLOBIN 14.9 g/dL (12.0-18.0); LYMPH # 1.6 K/uL (1.0-4.3); LYMPH % 24.1 % (20.0-40.0); MEAN CELL VOLUME 85.5 fL (80.0-94.0); MEAN CORPUSCULAR HEMOGLOBIN 29.7 pg (27.0-31.0); MEAN CORPUSCULAR HGB CONC 34.8 g/dL (33.0-37.0); MEAN PLATELET VOLUME 9.5 fL (7.2-11.7); MONO # 0.6 K/uL (0.0-0.8); MONO % 9.3 % (0.0-10.0); NEUT # 4.2 K/uL (1.8-7.0); NEUT % 61.4 % (50.0-75.0); NRBC % 0.1 % (0.0-2.0); RBC 5.02 Mil/uL (4.40-5.90); RED CELL DISTRIBUTION WIDTH 13.1 % (11.5-14.5); WHITE BLOOD COUNT 6.8 K/uL (4.8-10.8)
[2018-10-07 08:23] LABS: ALB/GLOB RATIO 1.6 (1.0-2.1); ALBUMIN 4.8 g/dL (3.5-5.0); ALT/SGPT 77 U/L (21-72); AST/SGOT 252 U/L (17-59); BLOOD UREA NITROGEN 12 mg/dL (9-20); CALCIUM 9.2 mg/dl (8.6-10.4); GFR NON-AFRICAN AMERICAN > 60
[2018-10-07] MEDS ORDERED: Potassium Chloride 20 mEq ER Tab PO ONE (08:39)
[2018-10-07] MEDS: Pantoprazole 40 mg EC Tab PO SCH (09:09)
[2018-10-07] MEDS: Lacosamide 100 MG Tab PO SCH (09:10)
--- NOTE | 2018-10-07 09:42 | CP.PCM.DIS ---
Provider - Provider Date of Admission: 10/04/18 22:56 Attending physician: Miguelina Victor MD Hospital Course - Lab Results Lab Results: Most Recent Lab Values WBC 6.8 K/uL (4.8-10.8) 10/07/18 07:41 RBC 5.02 Mil/uL (4.40-5.90) 10/07/18 07:41 Hgb 14.9 g/dL (12.0-18.0) 10/07/18 07:41 Hct 42.9 % (35.0-51.0) 10/07/18 07:41 MCV 85.5 fL (80.0-94.0) 10/07/18 07:41 MCH 29.7 pg (27.0-31.0) 10/07/18 07:41 MCHC 34.8 g/dL (33.0-37.0) 10/07/18 07:41 RDW 13.1 % (11.5-14.5) 10/07/18 07:41 Plt Count 209 K/uL (130-400) 10/07/18 07:41 MPV 9.5 fL (7.2-11.7) 10/07/18 07:41 Neut % (Auto) 61.4 % (50.0-75.0) 10/07/18 07:41 Lymph % (Auto) 24.1 % (20.0-40.0) 10/07/18 07:41 Nelson % (Auto) 9.3 % (0.0-10.0) 10/07/18 07:41 Eos % (Auto) 4.3 % (0.0-4.0) H 10/07/18 07:41 Baso % (Auto) 0.9 % (0.0-2.0) 10/07/18 07:41 Neut # (Auto) 4.2 K/uL (1.8-7.0) 10/07/18 07:41 Lymph # (Auto) 1.6 K/uL (1.0-4.3) 10/07/18 07:41 Nelson # (Auto) 0.6 K/uL (0.0-0.8) 10/07/18 07:41 Eos # (Auto) 0.3 K/uL (0.0-0.7) 10/07/18 07:41 Baso # (Auto) 0.1 K/uL (0.0-0.2) 10/07/18 07:41 pO2 39 mm/Hg (30-55) 10/04/18 20:55 VBG pH 7.32 (7.32-7.43) 10/04/18 20:55 VBG pCO2 43 mmHg (40-60) 10/04/18 20:55 VBG HCO3 21.1 mmol/L 10/04/18 20:55 VBG Total CO2 23.5 mmol/L (22-28) 10/04/18 20:55 VBG O2 Sat (Calc) 77.3 % (40-65) H 10/04/18 20:55 VBG Base Excess -3.9 mmol/L (0.0-2.0) L 10/04/18 20:55 VBG Potassium 3.6 mmol/L (3.6-5.2) 10/04/18 20:55 Sodium 137.0 mmol/l (132-148) 10/04/18 20:55 Chloride 105.0 mmol/L (98-107) 10/04/18 20:55 Glucose 99 mg/dl (75-110) 10/04/18 20:55 Lactate 3.2 mmol/L (0.7-2.1) H 10/04/18 20:55 Sodium 143 mmol/L (132-148) 10/07/18 07:41 Potassium 3.5 mmol/L (3.6-5.2) L 10/07/18 07:41 Chloride 103 mmol/L (98-107) 10/07/18 07:41 Carbon Dioxide 30 mmol/L (22-30) 10/07/18 07:41 Anion Gap 13 (10-20) 10/07/18 07:41 BUN 12 mg/dL (9-20) 10/07/18 07:41 Creatinine 1.1 mg/dL (0.8-1.5) 10/07/18 07:41 Est GFR ( Amer) > 60 10/07/18 07:41 Est GFR (Non-Af Amer) > 60 10/07/18 07:41 POC Glucose (mg/dL) 108 mg/dL (65-110) 10/05/18 01:09 EST Random Glucose 100 mg/dL (75-110) 10/07/18 07:41 Calcium 9.2 mg/dl (8.6-10.4) 10/07/18 07:41 Phosphorus 3.8 mg/dL (2.5-4.5) 10/05/18 07:28 Magnesium 2.5 mg/dL (1.6-2.3) H 10/05/18 07:28 Total Bilirubin 1.4 mg/dL (0.2-1.3) H 10/07/18 07:41 AST 252 U/L (17-59) H D 10/07/18 07:41 ALT 77 U/L (21-72) H D 10/07/18 07:41 Alkaline Phosphatase 80 U/L (38-126) 10/07/18 07:41 Total Creatine Kinase 379 U/L (55-170) H 10/04/18 20:10 Total Protein 7.8 g/dL (6.3-8.3) 10/07/18 07:41 Albumin 4.8 g/dL (3.5-5.0) 10/07/18 07:41 Globulin 3.0 gm/dL (2.2-3.9) 10/07/18 07:41 Albumin/Globulin Ratio 1.6 (1.0-2.1) 10/07/18 07:41 Procalcitonin < 0.05 NG/ML (0.19-0.49) L 10/04/18 20:10 Venous Blood Potassium 3.6 mmol/L (3.6-5.2) 10/04/18 20:55 Urine Color Yellow (YELLOW) 10/04/18 21:00 Urine Clarity Clear (Clear) 10/04/18 21:00 Urine pH 5.0 (5.0-8.0) 10/04/18 21:00 Ur Specific [place] 1.017 (1.003-1.030) 10/04/18 21:00 Urine Protein 1+ mg/dL (NEGATIVE) H 10/04/18 21:00 Urine Glucose (UA) Normal mg/dL (Normal) 10/04/18 21:00 Urine Ketones Negative mg/dL (NEGATIVE) 10/04/18 21:00 Urine Blood 2+ (NEGATIVE) H 10/04/18 21:00 Urine Nitrate Negative (NEGATIVE) 10/04/18 21:00 Urine Bilirubin Negative (NEGATIVE) 10/04/18 21:00 Urine Urobilinogen Normal mg/dL (0.2-1.0) 10/04/18 21:00 Ur Leukocyte Esterase Neg Paola/uL (Negative) 10/04/18 21:00 Urine WBC (Auto) 1 /hpf (0-5) 10/04/18 21:00 Urine RBC (Auto) 12 /hpf (0-3) H 10/04/18 21:00 Hyaline Casts 3-5 /lpf (0-2) H 10/04/18 21:00 Urine Opiates Screen Negative (NEGATIVE) 10/04/18 21:00 Urine Methadone Screen Negative (NEGATIVE) 10/04/18 21:00 Ur Barbiturates Screen Negative (NEGATIVE) 10/04/18 21:00 Ur Phencyclidine Scrn Negative (NEGATIVE) 10/04/18 21:00 Ur Amphetamines Screen Negative (NEGATIVE) 10/04/18 21:00 U Benzodiazepines Scrn Negative (NEGATIVE) 10/04/18 21:00 U Oth Cocaine Metabols Negative (NEGATIVE) 10/04/18 21:00 U Cannabinoids Screen Positive (NEGATIVE) H 10/04/18 21:00 Alcohol, Quantitative < 10 mg/dl (0-10) 10/04/18 22:30 Discharge Exam - Head Exam Head Exam: ATRAUMATIC, NORMAL INSPECTION, NORMOCEPHALIC Discharge Plan - Follow Up Plan Condition: FAIR Disposition: HOME/ ROUTINE Referrals: Skinny Robbins MD [Staff Provider] -
[2018-10-07] MEDS ORDERED: Influenza Vaccine 60 MCG/0.5 ML SYR (3 yr & up) IM ONE (10:00)
[2018-10-07] MEDS ORDERED: Pneumococcal 23-Valent Vaccine IM ONE (10:00)
--- NOTE | 2018-10-07 12:57 | CP.PCM.PN ---
Subjective - Date & Time of Evaluation Date of Evaluation: 10/07/18 Time of Evaluation: 13:05 - Subjective Subjective: Patient seen and examined with family members at bedside. No overnight events reported. Patient denies any fevers, chills, SOB, chest pain, abdominal pain, n/v, changes in bowel habits or urinary symptoms. Body aches have improved. He denies any seizure activity or periods of time that he can't remember. Objective - Vital Signs/Intake and Output Vital Signs (last 24 hours): Temp Pulse Resp BP Pulse Ox 98.2 F 83 20 137/90 99 10/07/18 07:00 10/07/18 07:02 10/07/18 07:00 10/07/18 07:00 10/07/18 07:00 Intake and Output: 10/07/18 10/07/18 06:59 18:59 Intake Total 600 500 Balance 600 500 - Medications Medications: Current Medications Acetaminophen (Tylenol 325mg Tab) 650 mg PO Q6 PRN PRN Reason: Pain, moderate (4-7) Benzocaine/Menthol (Cepacol Sore Throat) 1 robin MT AC PRN PRN Reason: Tongue Pain Last Admin: 10/06/18 17:10 Dose: 1 robin Sodium Chloride (Sodium Chloride 0.9%) 1,000 mls @ 100 mls/hr IV .Q10H [facility] Last Admin: 10/07/18 07:58 Dose: 100 mls/hr Levetiracetam (Keppra) 1,000 mg PO BID NAHID Lorazepam (Ativan) 0.5 mg IVP Q12 PRN PRN Reason: Seizure activity Pantoprazole Sodium (Protonix Ec Tab) 40 mg PO DAILY NAHID Last Admin: 10/07/18 09:09 Dose: 40 mg - Labs Labs: 10/07/18 07:41 10/07/18 07:41 - Additional Findings Additional findings: - Constitutional Appears: Well, Non-toxic, No Acute Distress - Head Exam Head Exam: ATRAUMATIC, NORMAL INSPECTION, NORMOCEPHALIC - Eye Exam Eye Exam: EOMI, Normal appearance, PERRL. absent: Scleral icterus - ENT Exam ENT Exam: Mucous Membranes Moist - Respiratory Exam Respiratory Exam: Clear to Ausculation Bilateral, NORMAL BREATHING PATTERN. absent: Accessory Muscle Use - Cardiovascular Exam Cardiovascular Exam: RRR, +S1, +S2 - GI/Abdominal Exam GI & Abdominal Exam: Soft, Normal Bowel Sounds. absent: Tenderness - Extremities Exam Extremities Exam: Full ROM, Normal Capillary Refill, Normal Inspection. absent: Pedal Edema - Neurological Exam Neurological Exam: Alert, Awake, Oriented x3. absent: Motor Sensory Deficit Neuro motor strength exam: Left Upper Extremity: 5, Right Upper Extremity: 5, Left Lower Extremity: 5, Right Lower Extremity: 5 - Psychiatric Exam Psychiatric exam: Normal Affect, Normal Mood - Skin Skin Exam: Dry, Intact, Normal Color, Warm Assessment and Plan - Assessment and Plan (Free Text) Assessment: 22 year old male with no significant past medical history admitted for evaluation and treatment of seizures. Plan: Seizure (New Onset) Neurology Consult (Dr. Robbins), Recs Appreciated Seizure/Aspiration Precautions CXR (Admission): No definite acute cardiopulmonary disease Head CT (Admission): NEGATIVE, except left sinus disease UDS (Admission): (+)THC EEG (10/06/18): Abnormal awake and drowsy EEG. THere are frequent left centro parietal sharps that indicate complex partial Epilepsy Brain MRI w/wo contrast: No acute intracranial abnormality. Essentially normal noncontrast and contrast-enhanced MRI of the brain. Acute and/or chronic pansinusitis, worse in the right maxillary, right frontal and sphenoid sinuses. Notify Motor Vehicle MEDS: Tylenol PRN Lacosamide (Vimpat) 100mg Daily Keppra 500 BID, started today. Ativan 0.5 IVP Q12H PRN NS @ 100mls/hr Elevated LFT's Likely 2/2 to Vimpat. Dose frequency decreased to Daily. Hepatitis Panel ordered today. Proph Protonix SCD's Heart Healthy Diet. Dispo: Patient to be discharged tomorrow morning with Vimpat 100mg Daily for 2 days and Keppra 1000mg BID. DMV will be notified in the morning as today is considered a state Holiday due to election. Discussed with Dr. Sunny Markham, PGY-2
[2018-10-07] MEDS ORDERED: Lacosamide 100 MG Tab PO SCH (13:00)
[2018-10-07] MEDS: Potassium Chloride 10 mEq ER Tab PO SCH (16:27)
[2018-10-07 17:58] LABS: HEPATITIS B SURFACE AG Negative (NEGATIVE)
[2018-10-07 18:04] LABS: HEPATITIS A IGM NEGATIVE (NEGATIVE); HEPATITIS B CORE AB NEGATIVE (NEGATIVE)
[2018-10-07 18:15] LABS: HEPATITIS C ANTIBODY NEGATIVE (NEGATIVE)
--- NOTE | 2018-10-07 21:18 | CP.PCM.PN ---
Subjective - Date & Time of Evaluation Date of Evaluation: 10/07/18 Time of Evaluation: 08:45 - Subjective Subjective: clinically same Objective - Vital Signs/Intake and Output Vital Signs (last 24 hours): Temp Pulse Resp BP Pulse Ox 98 F 75 20 138/81 96 10/07/18 16:00 10/07/18 20:45 10/07/18 16:00 10/07/18 16:00 10/07/18 16:00 Intake and Output: 10/07/18 10/08/18 18:59 06:59 Intake Total 1550 Balance 1550 - Medications Medications: Current Medications Benzocaine/Menthol (Cepacol Sore Throat) 1 robin MT AC PRN PRN Reason: Tongue Pain Last Admin: 10/06/18 17:10 Dose: 1 robin Sodium Chloride (Sodium Chloride 0.9%) 1,000 mls @ 100 mls/hr IV .Q10H [facility] Last Admin: 10/07/18 20:27 Dose: Not Given Ibuprofen (Motrin Tab) 600 mg PO TID PRN PRN Reason: Pain or Fever Levetiracetam (Keppra) 1,000 mg PO BID [facility] Last Admin: 10/07/18 17:04 Dose: 1,000 mg Lorazepam (Ativan) 0.5 mg IVP Q12 PRN PRN Reason: Seizure activity Pantoprazole Sodium (Protonix Ec Tab) 40 mg PO DAILY [facility] Last Admin: 10/07/18 09:09 Dose: 40 mg Potassium Chloride (Klor-Con 10) 10 meq PO BRK [facility] Last Admin: 10/07/18 16:27 Dose: 10 meq - Labs Labs: 10/07/18 07:41 10/07/18 07:41
[2018-10-08] MEDS: Sodium Chloride 0.9% 1,000 ML IV SCH ×2 (02:28→08:00)
[2018-10-08 08:08] VITALS: BP 156/77; PULSE 68; TEMP 98; O2SAT 99
[2018-10-08 08:09] LABS: BASO # 0.1 K/uL (0.0-0.2); BASO % 0.9 % (0.0-2.0); EOS # 0.2 K/uL (0.0-0.7); EOS % 3.9 % (0.0-4.0); HEMOGLOBIN 14.5 g/dL (12.0-18.0); LYMPH # 1.5 K/uL (1.0-4.3); LYMPH % 25.1 % (20.0-40.0); MEAN CELL VOLUME 85.3 fL (80.0-94.0); MEAN CORPUSCULAR HEMOGLOBIN 29.5 pg (27.0-31.0); MEAN CORPUSCULAR HGB CONC 34.6 g/dL (33.0-37.0); MEAN PLATELET VOLUME 9.7 fL (7.2-11.7); MONO # 0.5 K/uL (0.0-0.8); MONO % 8.8 % (0.0-10.0); NEUT # 3.6 K/uL (1.8-7.0); NEUT % 61.3 % (50.0-75.0); NRBC % 0.1 % (0.0-2.0); RBC 4.93 Mil/uL (4.40-5.90); RED CELL DISTRIBUTION WIDTH 12.9 % (11.5-14.5); WHITE BLOOD COUNT 5.9 K/uL (4.8-10.8)
[2018-10-08 08:41] LABS: ALB/GLOB RATIO 1.4 (1.0-2.1); ALBUMIN 4.3 g/dL (3.5-5.0); ALT/SGPT 96 U/L (21-72); AST/SGOT 254 U/L (17-59); BLOOD UREA NITROGEN 12 mg/dL (9-20); GFR NON-AFRICAN AMERICAN > 60
[2018-10-08] MEDS: Potassium Chloride 10 mEq ER Tab PO SCH (09:00)
[2018-10-08] MEDS: Pantoprazole 40 mg EC Tab PO SCH (09:05)
[2018-10-08] MEDS ORDERED: Pneumococcal 23-Valent Vaccine IM ONE (11:37)
--- NOTE | 2018-10-08 14:41 | CP.PCM.DIS ---
"Provider - Provider Date of Admission: 10/04/18 22:56 Attending physician: Miguelina Victor MD Consults: Neurology: Dr. Robbins | Dr. Ordoñez Time Spent in preparation of Discharge (in minutes): 30 Diagnosis - Discharge Diagnosis (1) Complex partial epilepsy Status: Chronic (2) New onset seizure Status: Acute Hospital Course - Lab Results Lab Results: Most Recent Lab Values WBC 5.9 K/uL (4.8-10.8) 10/08/18 07:55 RBC 4.93 Mil/uL (4.40-5.90) 10/08/18 07:55 Hgb 14.5 g/dL (12.0-18.0) 10/08/18 07:55 Hct 42.1 % (35.0-51.0) 10/08/18 07:55 MCV 85.3 fL (80.0-94.0) 10/08/18 07:55 MCH 29.5 pg (27.0-31.0) 10/08/18 07:55 MCHC 34.6 g/dL (33.0-37.0) 10/08/18 07:55 RDW 12.9 % (11.5-14.5) 10/08/18 07:55 Plt Count 199 K/uL (130-400) 10/08/18 07:55 MPV 9.7 fL (7.2-11.7) 10/08/18 07:55 Neut % (Auto) 61.3 % (50.0-75.0) 10/08/18 07:55 Lymph % (Auto) 25.1 % (20.0-40.0) 10/08/18 07:55 [place] % (Auto) 8.8 % (0.0-10.0) 10/08/18 07:55 Eos % (Auto) 3.9 % (0.0-4.0) 10/08/18 07:55 Baso % (Auto) 0.9 % (0.0-2.0) 10/08/18 07:55 Neut # (Auto) 3.6 K/uL (1.8-7.0) 10/08/18 07:55 Lymph # (Auto) 1.5 K/uL (1.0-4.3) 10/08/18 07:55 [place] # (Auto) 0.5 K/uL (0.0-0.8) 10/08/18 07:55 Eos # (Auto) 0.2 K/uL (0.0-0.7) 10/08/18 07:55 Baso # (Auto) 0.1 K/uL (0.0-0.2) 10/08/18 07:55 pO2 39 mm/Hg (30-55) 10/04/18 20:55 VBG pH 7.32 (7.32-7.43) 10/04/18 20:55 VBG pCO2 43 mmHg (40-60) 10/04/18 20:55 VBG HCO3 21.1 mmol/L 10/04/18 20:55 VBG Total CO2 23.5 mmol/L (22-28) 10/04/18 20:55 VBG O2 Sat (Calc) 77.3 % (40-65) H 10/04/18 20:55 VBG Base Excess -3.9 mmol/L (0.0-2.0) L 10/04/18 20:55 VBG Potassium 3.6 mmol/L (3.6-5.2) 10/04/18 20:55 Sodium 137.0 mmol/l (132-148) 10/04/18 20:55 Chloride 105.0 mmol/L (98-107) 10/04/18 20:55 Glucose 99 mg/dl (75-110) 10/04/18 20:55 Lactate 3.2 mmol/L (0.7-2.1) H 10/04/18 20:55 Sodium 141 mmol/L (132-148) 10/08/18 07:55 Potassium 3.7 mmol/L (3.6-5.2) 10/08/18 07:55 Chloride 105 mmol/L (98-107) 10/08/18 07:55 Carbon Dioxide 26 mmol/L (22-30) 10/08/18 07:55 Anion Gap 14 (10-20) 10/08/18 07:55 BUN 12 mg/dL (9-20) 10/08/18 07:55 Creatinine 1.0 mg/dL (0.8-1.5) 10/08/18 07:55 Est GFR ( Amer) > 60 10/08/18 07:55 Est GFR (Non-Af Amer) > 60 10/08/18 07:55 POC Glucose (mg/dL) 108 mg/dL (65-110) 10/05/18 01:09 EST Random Glucose 91 mg/dL (75-110) 10/08/18 07:55 Calcium 9.0 mg/dl (8.6-10.4) 10/08/18 07:55 Phosphorus 3.8 mg/dL (2.5-4.5) 10/05/18 07:28 Magnesium 2.0 mg/dL (1.6-2.3) 10/08/18 07:55 Total Bilirubin 1.2 mg/dL (0.2-1.3) 10/08/18 07:55 AST 254 U/L (17-59) H 10/08/18 07:55 ALT 96 U/L (21-72) H D 10/08/18 07:55 Alkaline Phosphatase 64 U/L (38-126) 10/08/18 07:55 Total Creatine Kinase 379 U/L (55-170) H 10/04/18 20:10 Total Protein 7.3 g/dL (6.3-8.3) 10/08/18 07:55 Albumin 4.3 g/dL (3.5-5.0) 10/08/18 07:55 Globulin 3.1 gm/dL (2.2-3.9) 10/08/18 07:55 Albumin/Globulin Ratio 1.4 (1.0-2.1) 10/08/18 07:55 Procalcitonin < 0.05 NG/ML (0.19-0.49) L 10/04/18 20:10 Venous Blood Potassium 3.6 mmol/L (3.6-5.2) 10/04/18 20:55 Urine Color Yellow (YELLOW) 10/04/18 21:00 Urine Clarity Clear (Clear) 10/04/18 21:00 Urine pH 5.0 (5.0-8.0) 10/04/18 21:00 Ur Specific [place] 1.017 (1.003-1.030) 10/04/18 21:00 Urine Protein 1+ mg/dL (NEGATIVE) H 10/04/18 21:00 Urine Glucose (UA) Normal mg/dL (Normal) 10/04/18 21:00 Urine Ketones Negative mg/dL (NEGATIVE) 10/04/18 21:00 Urine Blood 2+ (NEGATIVE) H 10/04/18 21:00 Urine Nitrate Negative (NEGATIVE) 10/04/18 21:00 Urine Bilirubin Negative (NEGATIVE) 10/04/18 21:00 Urine Urobilinogen Normal mg/dL (0.2-1.0) 10/04/18 21:00 Ur Leukocyte Esterase Neg [place]/uL (Negative) 10/04/18 21:00 Urine WBC (Auto) 1 /hpf (0-5) 10/04/18 21:00 Urine RBC (Auto) 12 /hpf (0-3) H 10/04/18 21:00 Hyaline Casts 3-5 /lpf (0-2) H 10/04/18 21:00 Urine Opiates Screen Negative (NEGATIVE) 10/04/18 21:00 Urine Methadone Screen Negative (NEGATIVE) 10/04/18 21:00 Ur Barbiturates Screen Negative (NEGATIVE) 10/04/18 21:00 Ur Phencyclidine Scrn Negative (NEGATIVE) 10/04/18 21:00 Ur Amphetamines Screen Negative (NEGATIVE) 10/04/18 21:00 U Benzodiazepines Scrn Negative (NEGATIVE) 10/04/18 21:00 U Oth Cocaine Metabols Negative (NEGATIVE) 10/04/18 21:00 U Cannabinoids Screen Positive (NEGATIVE) H 10/04/18 21:00 Alcohol, Quantitative < 10 mg/dl (0-10) 10/04/18 22:30 Hepatitis A IgM Ab Negative (NEGATIVE) 10/07/18 17:09 Hep Bs Antigen Negative (NEGATIVE) 10/07/18 17:09 Hep B Core IgM Ab Negative (NEGATIVE) 10/07/18 17:09 Hepatitis C Antibody Negative (NEGATIVE) 10/07/18 17:09 - Hospital Course Hospital Course: 22 year old male with no significant past medical history admitted for evaluation and treatment of new onset seizure activity. Neurology was consulted on the case. Relevant studies noted below. EEG significant for complex partial epilepsy. Patient started on Vimpat and Keppra during hospital stay. Hospital course was complicated by elevated LFT's 2/2 to Vimpat. Patient vimpat dose decreased to daily from BID. Patient only to be on Vimpat for 2 more days following discharge from the hospital. Patient started on Keppra 1000mg BID. 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 Patient also told to follow up with PMD within 1 week of admission and establish care. Patient told he could follow up at [facility]. [facility] notified. Medical Emergency Report was faxed to [facility] Medical review unit @ . He was asked to follow up with Neurology in 4 weeks. The importance of establishing care with PMD and following up with Neurology was reinforced to patient. Patient is agreeable to plan and new medications. Seizure (New Onset) Neurology Consult (Dr. Robbins), Recs Appreciated Seizure/Aspiration Precautions CXR (Admission): No definite acute cardiopulmonary disease Head CT (Admission): NEGATIVE, except left sinus disease UDS (Admission): (+)THC EEG (10/06/18): Abnormal awake and drowsy EEG. THere are frequent left centro parietal sharps that indicate complex partial Epilepsy Brain MRI w/wo contrast: No acute intracranial abnormality. Essentially normal noncontrast and contrast-enhanced MRI of the brain. Acute and/or chronic pansinusitis, worse in the right maxillary, right frontal and sphenoid sinuses. Discharge Exam - Additional Findings Additional findings: - Constitutional Appears: Well, Non-toxic, No Acute Distress - Head Exam Head Exam: ATRAUMATIC, NORMAL INSPECTION, NORMOCEPHALIC - Eye Exam Eye Exam: EOMI, Normal appearance, PERRL. absent: Scleral icterus - ENT Exam ENT Exam: Mucous Membranes Moist - Respiratory Exam Respiratory Exam: Clear to Ausculation Bilateral, NORMAL BREATHING PATTERN. absent: Accessory Muscle Use - Cardiovascular Exam Cardiovascular Exam: RRR, +S1, +S2 - GI/Abdominal Exam GI & Abdominal Exam: Soft, Normal Bowel Sounds. absent: Tenderness - Extremities Exam Extremities Exam: Full ROM, Normal Capillary Refill, Normal Inspection. absent: Pedal Edema - Neurological Exam Neurological Exam: Alert, Awake, Oriented x3. absent: Motor Sensory Deficit Neuro motor strength exam: Left Upper Extremity: 5, Right Upper Extremity: 5, Left Lower Extremity: 5, Right Lower Extremity: 5 - Psychiatric Exam Psychiatric exam: Normal Affect, Normal Mood - Skin Skin Exam: Dry, Intact, Normal Color, Warm Discharge Plan - Discharge Medications Prescriptions: Lacosamide [Vimpat] 100 mg PO DAILY 2 Days #2 tab levETIRAcetam [Keppra] 1,000 mg PO BID #60 tab - Follow Up Plan Condition: FAIR Disposition: HOME/ ROUTINE Instructions: Smoking: Not Just Harmful to Your Lungs and Heart, Lacosamide, Quitting Smoking, Seizures, Levetiracetam Additional Instructions: Please make an appointment and establish care with primary medical physician within 7 days You May follow up at our [facility] and establish care there or with Dr. Phill Victor. Please follow up with Neurologist /Dr. Robbins in 4 weeks. Please make appointment as soon as you get discharged. Please take new medications as instructed Keppra 1000mg Twice a day Vimpat 100mg Daily for 2 days only. Referrals: Skinny Robbins MD [Staff Provider] - Jesús Victor MD [Staff Provider] - Carleen Ordoñez MD [Staff Provider] -"
== END 2018-10-08 11:51 | disposition home or self-care (01) | DRG 889 ==
LOC: C.ER 20:10 → C.3T 22:56 → C.5S 10-05 01:19
PROVIDERS: ADMIT Internal Medicine Nephrology; ATTEND Internal Medicine Nephrology
DX: G40.209 Localization-related (focal) (partial) symptomatic epilepsy and epileptic syndromes with complex partial seizures, not intractable, without status epilepticus (principal); R32 Unspecified urinary incontinence; F12.90 Cannabis use, unspecified, uncomplicated; Z87.891 Personal history of nicotine dependence

== ENCOUNTER 2018-11-15 11:52 | Emergency (ER) | payer MEDICAID ==
[2018-11-15] MEDS ORDERED: levETIRAcetam 1,000 MG in Sodium Chloride 0.9% 100 ML IVPB STA (12:47)
[2018-11-15 13:09] LABS: BASO # 0.1 K/uL (0.0-0.2); BASO % 0.9 % (0.0-2.0); EOS # 0.3 K/uL (0.0-0.7); EOS % 2.1 % (0.0-4.0); HEMOGLOBIN 15.2 g/dL (12.0-18.0); LYMPH # 2.8 K/uL (1.0-4.3); LYMPH % 23.8 % (20.0-40.0); MEAN CELL VOLUME 87.8 fL (80.0-94.0); MEAN CORPUSCULAR HEMOGLOBIN 29.7 pg (27.0-31.0); MEAN CORPUSCULAR HGB CONC 33.9 g/dL (33.0-37.0); MEAN PLATELET VOLUME 9.9 fL (7.2-11.7); MONO # 0.7 K/uL (0.0-0.8); NEUT # 7.9 K/uL (1.8-7.0); NEUT % 67.2 % (50.0-75.0); RBC 5.12 Mil/uL (4.40-5.90); RED CELL DISTRIBUTION WIDTH 13.5 % (11.5-14.5); WHITE BLOOD COUNT 11.7 K/uL (4.8-10.8)
--- NOTE | 2018-11-15 13:12 | C.PDOC ---
History Of Present Illness 23 y/o male brought in by EMS after a seizure episode this morning. Patient was hospitalized 6 weeks ago and was diagnosed with new onset seizure disorder with abnormal EEG. Patient was discharged on Keppra 1000mg twice a day and was given 2 weeks worth of medications, which he took. Patient has an appointment with a neurologist in December and has not had medications for a month now. As per girlfriend, patient had episodes of sweating and transient blurry visions yesterday. This morning, she states patient was sleeping when he started making grunting noises and respiratory changes, and had a generalized tonic clonic seizure, which he fell out the bed and injured his left arm. Girlfriend was prompted to call 911. As per EMS, patient woke up in ambulance and had brief postictal phase. Patient is now awake and alert in ER, and complains of pain in left shoulder. Time Seen by Provider: 11/15/18 12:42 Chief Complaint (Nursing): Seizure History Per: Patient History/Exam Limitations: no limitations Recent Seizure Activity Began: Hours Ago: Quality Of Seizure: Generalized Past Medical History Reviewed: Historical Data, Nursing Documentation, Vital Signs Vital Signs: Last Vital Signs Temp 98 F 11/15/18 12:05 Pulse 106 H 11/15/18 12:05 Resp 18 11/15/18 12:05 BP 120/87 11/15/18 12:05 Pulse Ox 96 11/15/18 12:05 - Medical History PMH: Seizures (first seizure 10/04/18) Denies: Chronic Kidney Disease Surgical History: Appendectomy Family History: States: No Known Family Hx - Social History Hx Tobacco Use: (unknown) Hx Alcohol Use: Yes (occasional) Hx Substance Use: Yes - Immunization History Hx Tetanus Toxoid Vaccination: No Hx Influenza Vaccination: Yes Hx Pneumococcal Vaccination: No Review Of Systems Musculoskeletal: Positive for: Shoulder Pain (L) Neurological: Positive for: Seizures Physical Exam - Physical Exam Appears: Non-toxic, In Acute Distress Skin: Warm, Dry Head: Atraumatic, Normacephalic Eye(s): bilateral: Normal Inspection, PERRL, EOMI Oral Mucosa: Moist Neck: Supple Chest: Symmetrical Cardiovascular: Rhythm Regular, No Murmur Respiratory: Normal Breath Sounds, No Rales, No Rhonchi, No Wheezing Gastrointestinal/Abdominal: Soft, No Tenderness Extremity: Tenderness (over humeral head and distal clavicle), No Deformity, No Swelling Extremity: Bilateral: Normal Color And Temperature Neurological/Psych: Oriented x3, Normal Speech, Normal Cognition, Normal Motor, Normal Sensation ED Course And Treatment - Laboratory Results Result Diagrams: 11/15/18 13:05 11/15/18 13:05 Lab Interpretation: No Acute Changes O2 Sat by Pulse Oximetry: 96 (RA) Pulse Ox Interpretation: Normal - Other Rad Left shoulder X-Ray: Interpreted by Me, Read By Radiologist Interpretation: FINDINGS: BONES: Normal. No fracture. JOINTS: Normal. Glenohumeral and acromioclavicular joints preserved. No osteoarthritis. SOFT TISSUES: Normal. OTHER FINDINGS: None. IMPRESSION: No evidence of acute fracture or dislocation. - CT Scan/US CT left shoulder Other Rad Studies (CT/US): Read By Radiologist, Radiology Report Reviewed CT/US Interpretation: Accession No. : [id number]. Patient Name / ID : CEE SAUCEDA / [id number]. Exam Date : 11/15/2018 15:30:03 ( Approved ). Study Comment : Sex / Age : M / 23Y. Creator : Parth Urena MD. Dictator : Parth Urena MD. Event Marketing Representative : Roll Edge Machine Operator : Parth Urena MD. Approver2 : Report Date : 11/15/2018 16:52:35. My Comment : . Date of service: 11/15/2018. PROCEDURE: LEFT SHOULDER CT WITHOUT CONTRAST. HISTORY: shoulder injury during seizure. COMPARISON: Left shoulder radiographs 11/15/2018. TECHNIQUE: A volumetric CT acquisition of the left shoulder performed without intravenous contrast with reformatted data sets provided as well. FINDINGS: No dislocation or subluxation is identified with the acromioclavicular and glenohumeral joints intact. No destructive bony lesions appreciated however there is deformity at the superomedial left humeral head suggestive of a Bankart lesion. Local soft tissues appear unremarkable. Endosteal lesion at the diaphysis of the left humerus is identified. Follow-up nuclear bone scan is recommended for added characterization of this finding (whole-body). IMPRESSION: Acute subacute Hill-Sachs deformity left humeral head potentially reflecting prior dislocation even potentially during the patient's reported seizure. No dislocation glenohumeral or acromioclavicular joints. Endosteal lesion left humerus incidentally noted for which follow-up whole-body nuclear bone scan is advised to exclude potential aggressive lesion. Progress Note: Patient treated with IV Keppra and Morphine in ED. 2:00 Patient still c/o left shoulder pain despite unremarkable xray. CT ordered. Reevaluation Time: 19:22 Reassessment Condition: Improved (Patient much improved and more comfortable now.) - Physician Consult Information Time Consulting Physician Contacted: 17:11 Physician Contacted: Mindy Mera Outcome Of Conversation: Unable to reach Dr Mera. Patient feels better and wants to be discharged and states he will follow up with Dr Mera and or keyshawn in the office. Medical Decision Making Medical Decision Making: Plan: --Labs --Morphine --IV fluids --Left shoulder x-ray --Urinalysis Disposition Counseled Patient/Family Regarding: Studies Performed, Diagnosis, Need For Followup, Rx Given - Disposition Referrals: Mindy Mera MD [Staff Provider] - Disposition: HOME/ ROUTINE Disposition Time: 13:59 Condition: IMPROVED Additional Instructions: Wear the sling for comfort. Apply ice to the left shoulder for 2-3 days. Take Tylenol or Advil for pain if needed. Prescriptions: Levetiracetam [Keppra] 1,000 mg PO BID #120 tablet Instructions: Seizures, Adult (DC) Forms: LK FREEMAN (Samoan) - Clinical Impression Clinical Impression: Seizure, Hill Sachs deformity, left, Endosteal scalloping present on X-ray - Scribe Statement The provider has reviewed the documentation as recorded by the [place] Provider Attestation: All medical record entries made by the Cailinibe were at my direction and personally dictated by me. I have reviewed the chart and agree that the record accurately reflects my personal performance of the history, physical exam, medical decision making, and the department course for this patient. I have also personally directed, reviewed, and agree with the discharge instructions and disposition.
[2018-11-15 13:20] LABS: URINE BILIRUBIN NEGATIVE (NEGATIVE); URINE BLOOD 2+ (NEGATIVE); URINE CLARITY Clear (Clear); URINE COLOR Yellow (YELLOW); URINE GLUCOSE (UA) NORMAL (Normal); URINE LEUKOCYTE ESTERASE NEG Leu/uL (Negative); URINE PROTEIN 2+ mg/dL (NEGATIVE); URINE UROBILINOGEN NORMAL mg/dL (0.2-1.0)
[2018-11-15 13:28] LABS: ALB/GLOB RATIO 1.6 (1.0-2.1); ALBUMIN 4.6 g/dL (3.5-5.0); ALT/SGPT 68 U/L (21-72); AST/SGOT 47 U/L (17-59); BLOOD UREA NITROGEN 13 mg/dL (9-20); CALCIUM 9.1 mg/dl (8.6-10.4); GFR NON-AFRICAN AMERICAN > 60
[2018-11-15 13:33] LABS: BARBITURATES, UR NEGATIVE (NEGATIVE); BENZODIAZEPINES, UR NEGATIVE (NEGATIVE); PHENCYCLIDINE, UR NEGATIVE (NEGATIVE)
[2018-11-15 13:47] LABS: OPIATES, UR NEGATIVE (NEGATIVE)
--- NOTE | 2018-11-15 15:00 | RAD ---
Date of service: 11/15/2018 PROCEDURE: Radiographs of the Left Shoulder HISTORY: seizure, arm injury COMPARISON: No prior. FINDINGS: BONES: Normal. No fracture. JOINTS: Normal. Glenohumeral and acromioclavicular joints preserved. No osteoarthritis. SOFT TISSUES: Normal. OTHER FINDINGS: None. IMPRESSION: No evidence of acute fracture or dislocation.
--- NOTE | 2018-11-15 16:56 | CT ---
Date of service: 11/15/2018 PROCEDURE: LEFT SHOULDER CT WITHOUT CONTRAST HISTORY: shoulder injury during seizure COMPARISON: Left shoulder radiographs 11/15/2018. TECHNIQUE: A volumetric CT acquisition of the left shoulder performed without intravenous contrast with reformatted data sets provided as well. FINDINGS: No dislocation or subluxation is identified with the acromioclavicular and glenohumeral joints intact. No destructive bony lesions appreciated however there is deformity at the superomedial left humeral head suggestive of a Bankart lesion. Local soft tissues appear unremarkable. Endosteal lesion at the diaphysis of the left humerus is identified. Follow-up nuclear bone scan is recommended for added characterization of this finding (whole-body). IMPRESSION: Acute subacute Hill-Sachs deformity left humeral head potentially reflecting prior dislocation even potentially during the patient's reported seizure. No dislocation glenohumeral or acromioclavicular joints. Endosteal lesion left humerus incidentally noted for which follow-up whole-body nuclear bone scan is advised to exclude potential aggressive lesion.
[2018-11-15 18:18] VITALS: RESP 20
[2018-11-15 19:47] VITALS: BP 142/70; PULSE 91; TEMP 97.1; O2SAT 99
== END 2018-11-15 19:47 | disposition home or self-care (01) ==
LOC: C.ER 11:52
DX: G40.409 Other generalized epilepsy and epileptic syndromes, not intractable, without status epilepticus (principal); S42.292A Other displaced fracture of upper end of left humerus, initial encounter for closed fracture; W06.XXXA Fall from bed, initial encounter; Y92.003 Bedroom of unspecified non-institutional (private) residence as the place of occurrence of the external cause; R93.7 Abnormal findings on diagnostic imaging of other parts of musculoskeletal system
CPT/HCPCS: 73030; 73200; 80053; 80324; 80345; 80346; 80349; 80353; 80358; 80361; 81001; 82948; 83992; 85025; 96365; 96375; 99285; J1953; J2270

== ENCOUNTER 2019-01-27 15:33 | Emergency (ER) | payer MEDICAID ==
[2019-01-27 15:38] VITALS: BP 143/90; PULSE 107; RESP 20; TEMP 97.7; O2SAT 98
--- NOTE | 2019-01-27 16:13 | C.PDOC ---
History Of Present Illness Pt is here requesting medication refill for his Keppra 1000mg bid. Last dose was 1 week ago. Time Seen by Provider: 01/27/19 15:55 Chief Complaint (Nursing): Med Refill History Per: Patient Onset/Duration Of Symptoms: Days Current Symptoms Are (Timing): Still Present Severity: None Reports Recently: Seen In ED Additional History Per: Prior Records Past Medical History Reviewed: Historical Data, Nursing Documentation, Vital Signs Vital Signs: Last Vital Signs Temp 97.7 F 01/27/19 15:36 Pulse 107 H 01/27/19 15:36 Resp 20 01/27/19 15:36 BP 143/90 01/27/19 15:36 Pulse Ox 98 01/27/19 15:36 - Medical History PMH: Seizures (first seizure 10/04/18) Surgical History: Appendectomy Family History: States: Unknown Family Hx - Social History Hx Tobacco Use: (unknown) Hx Alcohol Use: Yes (occasional) Hx Substance Use: Yes - Immunization History Hx Tetanus Toxoid Vaccination: No Hx Influenza Vaccination: Yes Hx Pneumococcal Vaccination: No Review Of Systems Except As Marked, All Systems Reviewed And Found Negative. Constitutional: Negative for: Fever, Weakness Cardiovascular: Negative for: Chest Pain Respiratory: Negative for: Shortness of Breath Gastrointestinal: Negative for: Vomiting, Abdominal Pain Musculoskeletal: Negative for: Neck Pain Skin: Negative for: Rash Neurological: Negative for: Weakness, Numbness, Seizures, Altered Mental Status, Headache Physical Exam - Physical Exam Appears: Non-toxic, No Acute Distress Skin: Normal Color, Warm, Dry Head: Atraumatic, Normacephalic Eye(s): bilateral: PERRL Neck: Normal ROM, Supple Extremity: Normal ROM Neurological/Psych: Oriented x3, Normal Speech, Normal Cognition, Normal Motor ED Course And Treatment O2 Sat by Pulse Oximetry: 98 Pulse Ox Interpretation: Normal Disposition Counseled Patient/Family Regarding: Diagnosis, Need For Followup, Rx Given - Disposition Referrals: Skinny Robbins MD [Staff Provider] - Disposition: HOME/ ROUTINE Disposition Time: 16:13 Condition: STABLE Additional Instructions: Follow up with a Neurologist for further evaluation and treatment. Return to the ER if you develop seizure, worsening of symptoms or if you have any other concerns. Prescriptions: Levetiracetam [Keppra] 2 tab PO BID #120 tablet Instructions: Levetiracetam - Clinical Impression Clinical Impression: Medication refill
== END 2019-01-27 16:20 | disposition home or self-care (01) ==
LOC: C.ER 15:33
DX: Z76.0 Encounter for issue of repeat prescription (principal)